=== PATIENT | male | born 1995 | race African-American/Black ===

== ENCOUNTER 2024-12-23 00:22 | Emergency (ER) | payer MEDICAID, SELFPAY ==
[2024-12-23 00:25] VITALS: BP 167/110; PULSE 107; RESP 20; TEMP 36.3; O2SAT 99; BMI 33.0
--- NOTE | 2024-12-23 01:17 | EX.ED.UPPERE ---
HPI History of Present Illness Chief Complaint: Upper Extremity Injury Informant: patient Narrative Narrative: Patient is a 29-year-old male presenting with right-sided shoulder pain. Patient states he woke up with it this morning. Really noticed it first with any when he went to look through the blinds he had severe pain with movement of his shoulder. He has been dealing with that throughout the day. Any movement of his shoulder really hurts in the anterior aspect of his shoulder. Denies associated numbness or tingling. States he is now getting a slight headache. Tried IcyHot that his friend gave him did not take anything else for pain. Does not have a primary care doctor. Denies any trauma. Notes that he displayed videogames yesterday which is not abnormal for him. States he does tend to sleep on his right side is not sure if he did something to it in his sleep. Denies any injuries. No other complaints or concerns reported at this time. No prior injuries or issues with his right shoulder reported. PFSH PFSH Medical History no medical history Home Medications ?Medication ?Instructions ?Recorded ?Last Taken ?Type ibuprofen 600 mg tablet 600 mg PO Q6H PRN PRN pain #20 12/23/24 Unknown Rx TABLETS Allergy/AdvReac Type Severity Reaction Status Date / Time No Known Allergies Allergy Verified 12/23/24 00:23 Surgical History no surgical history Social History Smoking Status: Former smoker ROS ROS ED Constitutional Constitutional ED: Denies chills or fever(s) Cardiovascular Cardiovascular: Denies chest pain Respiratory/Chest Respiratory/Chest: Denies cough Gastrointestinal Gastrointestinal: Denies nausea or vomiting Musculoskeletal Musculoskeletal: Reports other Details: Right shoulder pain Integumentary Denies rash Neurologic Neurologic: Reports headache(s) Hematologic/Lymphatic Hematologic/Lymphatic: Denies easy bleeding or easy bruising EXAM Physical Exam Const Vital Signs: 12/23/24 00:25 Temperature 97.4 F L Temperature Source Oral Pulse Rate 107 H Respiratory Rate 20 H Blood Pressure 167/110 H Blood Pressure Mean 129 Pulse Ox 99 Oxygen Delivery Method Room Air Positive well nourished and well developed General Appearance ED: well developed and NAD Eyes PERRL Neck supple General: Negative for tenderness Chest Wall inspection of chest normal and palpation of chest normal Resp normal respiratory effort and clear to auscultation bilaterally Cardio regular rate and regular rhythm Extremity Extremity Narrative: No obvious deformity. Mild tenderness palpation of the anterior shoulder at the bicipital groove. Patient resist even passive flexion of the shoulder as well as abduction. Position of comfort appears to be with his arm down and abducted. No pain with range of motion of the elbow or wrist. Normal tone throughout. Patient does not want to flex his biceps because of pain. Neuro oriented x3, moves all extremities, no focal motor deficits and no sensory deficits noted Sensorium / Orientation: alert Motor Exam: muscle tone normal throughout; Negative for general weakness Psych mental status grossly normal Skin Rashes: no rashes MDM MDM MDM Narrative Medical decision making narrative: Patient is evaluate for atraumatic right shoulder pain. Presentation most concerning for possible tendinitis. Suspect this is muscle skeletal I do not think there is any type of referred pain. Is highly reproducible with movement of the shoulder. He does not have any injury so low suspicion for fracture or dislocation. Do not appreciate any deformity of the shoulder. Will defer imaging at this time. Patient is not had any NSAIDs for pain today. Will be given a dose of Motrin given a sling. Given referral for Ortho if the symptoms do not improve with conservative treatment (RICE therapy). He verbalized agreement or stands plan. He has good distal pulses low suspicion for any acute vascular abnormality. Compartments are soft in the upper extremity. Discharged home in stable condition. Patient ambulates in the ER with a steady gait. Discharge Plan Triage Chief Complaint: Upper Extremity Injury ED Provider: Arminda Pena Dx/Rx/DC Orders Clinical Impression: Nontraumatic pain of right shoulder Instructions: ED Shoulder Pain, Uncertain Cause Prescriptions: New ibuprofen 600 mg tablet 600 mg PO Q6H PRN PRN (Reason: pain) Qty: 20 0RF Primary Care Provider: Care Physician,No Primary Referrals: You Soriano MD [Med Staff - Active Staff] - As Needed Care Physician,No Primary [Primary Care Provider] - Activity Restrictions/Additional Instructions: Suspect you have irritation of your bicep tendon or one of the tendon that connects to your shoulder. Use anti-inflammatory such as ibuprofen prescribed today. If needed you may also take Tylenol (acetaminophen) for breakthrough pain. Wear sling as needed for comfort. If you are wearing the sling please make sure you perform range of motion exercises to the shoulder couple times a day (big circles a little circles in both directions as we discussed) to prevent frozen shoulder. If it does not improve with conservative treatment such as rest, ice and the medication prescribed please follow-up with orthopedics. Print Language: Gabonese Disposition Disposition: Home, Self Care
[2024-12-23] MEDS: Ibuprofen 600 MG Tablet PO (01:20)
[2024-12-23 01:52] VITALS: BP 163/100; PULSE 99; RESP 17; TEMP 36.7; O2SAT 99
== END 2024-12-23 01:52 | disposition home or self-care (01) ==
PROVIDERS: Emergency Provider Emergency Medicine; Visit Provider Emergency Medicine
DX: M25.511 Pain in right shoulder (principal); Z87.891 Personal history of nicotine dependence; R51.9 Headache, unspecified
CPT/HCPCS: 99283